=== PATIENT | female | born 1950 | race Caucasian/White ===

== ENCOUNTER → 2020-10-02 | Outpatient (CLI) | payer MEDICARE ==
--- NOTE | 2020-10-03 11:59 | Diagnostic Imaging Report ---
Indication: Routine screening. Comparison is made with prior mammogram 06/14/2013 and 06/13/2012. 2-D and 3-D bilateral screening mammography was performed with CAD. Both breasts are heterogeneously dense, limiting sensitivity of mammography. A circumscribed mass in the right breast is stable. There are benign calcifications in both breasts. No spiculated mass or malignant appearing microcalcifications are seen. Axillae are unremarkable. IMPRESSION: BI-RADS Category 2 No mammographic features suspicious for malignancy are identified. ACR BI-RADS Category 2: Benign findings. Result letter will be mailed to the patient. Note: At least 10% of breast cancer is not imaged by mammography. Dictated by: Dictated on workstation # [id number]
== END ==
LOC: RAD 10:27
PROVIDERS: ATTEND Family Medicine
DX: Z12.31 Encounter for screening mammogram for malignant neoplasm of breast (principal)
CPT/HCPCS: 77063; 77067

== ENCOUNTER 2020-10-21 07:02 | Outpatient (CLI) | payer MEDICARE ==
[~2020-10-21] VITALS: Ht 160 cm; Wt 85.3 kg
[2020-10-21] MEDS ORDERED: LISI10TA25 PO (11:32)
== END 2020-10-21 12:20 | disposition home or self-care (01) ==
LOC: PREOP 07:02 → EDSTATUS 09:15 → PREOP 12:20
PROVIDERS: ATTEND Surgery
DX: Z01.818 Encounter for other preprocedural examination (principal)

== ENCOUNTER 2020-10-28 08:28 | Day surgery (SDC) | payer MEDICARE, OTHER ==
[~2020-10-28] VITALS: Ht 160 cm; Wt 85.3 kg
[~2020-10-28 08:28] MED LIST: LACTATED RINGERS 1,000 ML IV ONE; LISI10TA25 PO
[2020-10-28] MEDS ORDERED: LACTATED RINGERS 1,000 ML IV STA (08:29)
[2020-10-28 08:40] VITALS: BP 136/69
[2020-10-28] MEDS ORDERED: PROPOFOL INJECTION 50 ML IV ONE ×2 (08:54→09:42)
[2020-10-28] MEDS ORDERED: MIDAZOLAM 2 MG/2 ML (VERSED) VIAL ONE (08:55)
[2020-10-28 10:00] VITALS: BP 120/57
[2020-10-28 10:05] VITALS: BP 122/60
[2020-10-28 10:25] VITALS: BP 106/63
--- NOTE | 2020-10-28 10:46 | Progress Note-Post Operative ---
Post-Operative Progess Note Surgeon (s)/Carburetor Repairer (s) Surgeon MAN GENAO DO Carburetor Repairer: none Pre-Operative Diagnosis screening colonoscopy Post-Operative Diagnosis Diverticula int hemorrhoids Procedure & Operative Findings Date of Procedure 10/28/20 Procedure Performed/Findings colon Anesthesia Type IV sedation by COUNTER CUTTER Estimated Blood Loss Estimated blood loss (mL): scant Specimens/Packing Specimens Removed none MAN GENAO DO Oct 28, 2020 10:46
--- NOTE | 2020-10-28 10:46 | Endoscopy Discharge Instruct ---
Endo Procedure/Findings Findings 1.: Diverticulosis 2.: Internal Hemorrhoids Discharge Instructions - Activity: You might feel a little sleepy until tomorrow. This is due to the medicine you received to relax you. Until tomorrow, you should: NOT drive a car, operate machinery or power tools. NOT drink any alcoholic beverages. NOT make any important decisions or sign importortant papers. Do not return to work until tomorrow, unless otherwise instructed. Resume previous activities tomorrow. Diet: Start by taking liquids. If you tolerate liquids, advance to solid food. 1.: Colonscopy in 10 years Notify Physician - If you experience excessive bleeding, unusual abdominal pain, fever, or chest pain, contact your doctor immediately. MAN GENAO DO Oct 28, 2020 10:46
[2020-10-28 11:05] VITALS: BP 106/63
--- NOTE | 2020-10-28 13:00 | Anesthesia-General Post-Op ---
MAC Patient Condition Mental Status/LOC: Same as Preop Cardiovascular: Satisfactory Nausea/Vomiting: Absent Respiratory: Satisfactory Pain: Controlled Complications: Absent Post Op Complications Complications None Follow Up Care/Instructions Patient Instructions None needed. Anesthesiology Discharge Order Discharge Order Patient is doing well, no complaints, stable vital signs, no apparent adverse anesthesia problems. No complications reported per nursing. GINNY MONTANO CRNA Oct 28, 2020 13:00
--- NOTE | 2020-10-29 20:00 | OPERATIVE REPORT ---
DATE OF SERVICE: 10/28/2020 PREOPERATIVE DIAGNOSIS: Screening colonoscopy. POSTOPERATIVE DIAGNOSES: Diverticula and internal hemorrhoids. PROCEDURE PERFORMED: Colonoscopy. SURGEON: Suraj Amin DO. DISINTEGRATOR: None. ANESTHESIA: IV sedation by the WASHATERIA ATTENDANT. SPECIMENS: None. BLOOD LOSS: None. FLUIDS: Per anesthesia. POSTOPERATIVE CONDITION: Stable. INDICATION FOR PROCEDURE: The patient is a 70-year-old female, who has not had a colonoscopy in over 10 years and needs a colonoscopy for screening. FINDINGS: The patient had some pretty large diverticula and some internal hemorrhoids that were very small, but no other obvious pathology. PROCEDURE NOTE: After informed consent was obtained, the patient was brought to the endoscopy suite and placed in bed in a left lateral decubitus position. She was administered IV sedation by the WASHATERIA ATTENDANT, who then monitored her vitals the entire time, heart rate, blood pressure and pulse ox and the scope was inserted, pushed all the way in about [address] in, I noted a lot of diverticula. A picture was taken. I was then able to get all the way to the cecum, took a picture of appendiceal orifice, noted the ileocecal valve and then slowly withdrew the scope insufflating, looked circumferentially at the diaz, looking at the cecum up the ascending colon to the hepatic flexure, down the transverse colon, the splenic flexure, into the descending colon, down in the sigmoid and finally into the rectum, retroflexing the rectal vault, saw some very minimal internal hemorrhoids, took a picture and then removed the scope. The patient tolerated the procedure. She was recovered in an endoscopy suite. Job ID: [id number] DocumentID: [id number] Dictated Date: 10/29/2020 17:37:53 Export Traffic Department Manager Date: 10/29/2020 19:59:24 Dictated By: SURAJ AMIN DO
== END 2020-10-28 11:05 | disposition home or self-care (01) ==
LOC: ENDO 08:28
PROVIDERS: ATTEND Surgery
DX: Z12.11 Encounter for screening for malignant neoplasm of colon (principal); K64.8 Other hemorrhoids; K57.30 Diverticulosis of large intestine without perforation or abscess without bleeding; I10 Essential (primary) hypertension; E66.9 Obesity, unspecified; Z68.33 Body mass index [BMI] 33.0-33.9, adult; Z79.899 Other long term (current) drug therapy

== ENCOUNTER → 2021-10-03 | Outpatient (CLI) | payer MEDICARE, OTHER ==
[~2021-10-03] MED LIST changes: -LACTATED RINGERS 1,000 ML IV ONE
--- NOTE | 2021-10-03 09:22 | Diagnostic Imaging Report ---
INDICATION: Routine screening. COMPARISON: 10/02/2020 and 06/14/2013. TECHNIQUE: 2D and 3D bilateral screening mammography was performed with CAD. FINDINGS: Both breasts are heterogeneously dense, limiting the sensitivity of mammography. A benign-appearing nodule in the central right breast is stable. No spiculated mass or malignant-appearing microcalcifications are seen. There are scattered benign calcifications noted. The axillae are unremarkable. IMPRESSION: No mammographic features suspicious for malignancy are identified. ACR BI-RADS Category 2: Benign findings. Result letter will be mailed to the patient. Note: At least 10% of breast cancer is not imaged by mammography. Dictated by: Dictated on workstation # [id number]
== END ==
LOC: RAD 07:30
PROVIDERS: ATTEND Family Medicine
DX: Z12.31 Encounter for screening mammogram for malignant neoplasm of breast (principal)
CPT/HCPCS: 77063; 77067

== ENCOUNTER → 2022-12-25 | Outpatient (CLI) | payer MEDICARE, OTHER ==
--- NOTE | 2022-12-25 18:05 | Diagnostic Imaging Report ---
INDICATION: Routine screening. COMPARISON: Prior mammogram from 10/03/2021 and 10/02/2020. EXAMINATION: 2D and 3D bilateral screening mammography was performed with CAD. The current study was also evaluated with a Computer Aided Detection (CAD) system. FINDINGS: Both breasts are heterogeneously dense, limiting the sensitivity of mammography. The parenchymal pattern is stable. There are scattered benign calcifications. No mass or malignant-appearing microcalcifications are seen. Axillae are unremarkable. IMPRESSION: No mammographic feature suspicious for malignancy is identified. ACR BI-RADS Category 2: Benign findings. Result letter will be mailed to the patient. Note: At least 10% of breast cancer is not imaged by mammography. Dictated by: Dictated on workstation # [id number]
== END ==
LOC: RAD 07:42
PROVIDERS: ATTEND Family Medicine
DX: Z12.31 Encounter for screening mammogram for malignant neoplasm of breast (principal)
CPT/HCPCS: 77063; 77067